=== PATIENT | female | born 1940 | race Caucasian/White ===

== ENCOUNTER → 2016-12-30 | Day surgery (SDC) | payer OTHER ==
[~2016-12-30] VITALS: Ht 157.5 cm; Wt 57.3 kg
[~2016-12-30] MED LIST: *morphine SULFATE 8 MG/ML PERIprocedure ONLY ONE; ACETAMINOPHEN 1000 MG/100 ML VIAL IV ONE; ACETAMINOPHEN/HYDROcodone 325 MG/5 MG TAB PO PRN; BUPIVACAINE/EPINEPHRINE 0.25% PF 30 ML VIAL ONE; CARB6.5S5 EACH EAR; DEXAMETHASONE SOD PHOS 4 MG/ML VIAL ONE; ENAL20TA PO; FAMOTIDINE 20 MG/2 ML VIAL ONE; HYDR-3288 PO; HYDR-3583 PO; INSULIN HUMAN REGULAR 1,000 UNITS/10 ML VIAL SQ PRN; IOHEXOL 300 MG/ML 50 ML BTL (for RAD DIAG) OTHER ONE; KETOROLAC TROMETHAMINE 60 MG/2 ML (IM) VIAL IM ONE; LACTATED RINGER'S 1000 ML IV SCH; METOPROLOL TARTRATE 25 MG TAB PO PRN; MIDAZOLAM HCL 2 MG/2 ML VIAL ONE; MORPHINE SULFATE 4 MG/ML INJ IV PRN; MULT1TAB84 PO; NEOSTIGMINE 3 MG/3 ML SYR IV ONE; ONDANSETRON HCL 4 MG/2 ML VIAL IV PRN; ONDANSETRON HCL 4 MG/2 ML VIAL IV PUSH ONE; PROPOFOL 200 MG/20 ML AMP IV ONE; SODIUM CHLORID 0.9% 500 ML IV SCH; VANCOMYCIN HCL 1000 MG ON-CALL/NS 250 ML IV SCH; ceFAZolin 1,000 MG/NS 100 ML IV SCH; ePHEDrine/NS 50 MG/5 ML SYR IV ONE; fentaNYL CITRATE 250 MCG/5 ML AMP ONE
[2016-12-30 07:48] VITALS: BP 130/80; PULSE 72; RESP 16; TEMP 97.6; O2SAT 97
[2016-12-30 08:58] LABS: BICARBONATE 25.5 MEQ/L (21.0-32.0); POTASSIUM 3.6 MEQ/L (3.5-5.1)
--- NOTE | 2016-12-30 12:10 | RADRPT ---
EXAM DATE/TIME: 12/30/2016 11:01 [place] COMPARISON: No previous studies available for comparison. INDICATIONS : Cholelathisis. FLUORO TIME: 1.7 minutes IMAGE COUNT: MEDICAL HISTORY : None. SURGICAL HISTORY : None. ENCOUNTER: Initial ACUITY: 1 day PAIN SCORE: Non-responsive. LOCATION: Abdominal. PROCEDURE: CHOLANGIOGRAM, OPERATIVE 1. Intraoperative cholangiogram. In the operating room, the cystic duct stump was injected and radiographs obtained. The examination demonstrates small filling defects in the distal common bile duct with post sphincter otomy changes. No obstruction. CONCLUSION: 1. Small filling defects in the distal common bile duct, slightly irregular an appearance most charac teristic of small choledocholithiasis. Gaetano Zavala MD on December 30, 2016 at 12:04 Board Certified Radiologist. This report was verified electronically.
[2016-12-30 13:00] VITALS: BP 115/69; PULSE 86; RESP 16; TEMP 98.2; O2SAT 95
--- NOTE | 2016-12-30 15:57 | EKG ---
Date Performed: 12/30/2016 Time Performed: 07:58:19 PTAGE: 76 years EKG: Sinus rhythm Compared to prior tracing no significant change NORMAL ECG PREVIOUS TRACING : 01/28/1999 07.50 DOCTOR: Дмитрий Sexton Interpretating Date/Time 12/30/2016 15:55:12
--- NOTE | 2017-01-12 07:34 | MP ---
cc: NAREN FLORES M.D. DATE OF SURGERY 12/30/2016 PROCEDURE Laparoscopic cholecystectomy with intraoperative cholangiogram with intraoperative use of fluoroscopy. PREOPERATIVE DIAGNOSIS Cholecystitis POSTOPERATIVE DIAGNOSIS Same ANESTHESIA General endotracheal SURGEON Naren Flores MD ESTIMATED BLOOD LOSS Less than 10 mL FLUIDS 600 mL of crystalloid COMPLICATIONS None DRAINS None SPECIMEN Gallbladder to pathology. PROCEDURE IN DETAIL The patient was taken to the operating room and placed on the operating table in the supine position. After an adequate level of general endotracheal anesthesia was achieved, the abdomen was prepped and draped in the usual fashion. Time-out was taken confirming correct patient, site and procedure to be performed. Skin and subcutaneous tissue was infiltrated with local anesthetic and an incision made through the umbilicus and carried through the fascia sharply. The peritoneal cavity was directly visualized and a 12 mm balloon trocar was inserted and the balloon inflated. The patient was placed in reverse Trendelenburg position and the upper abdomen visualized. Three 5 mm trocars were placed with the first to the right of the falciform ligament and the second and third in the right subcostal region. All entered the abdominal cavity under direct vision uneventfully. The fundus of the gallbladder was then grasped and retracted upward. The cystic duct infundibular junction and cystic artery were both circumferentially dissected. The cystic artery was doubly clipped proximally, singly clipped on the gallbladder side and divided. A small cystic ductotomy was made and an Porter cholangiocatheter brought in via separate stab incision. The gallbladder was clipped proximal to this and an Porter cholangiocatheter brought in and placed into the cystic duct and secured with a clip. Cholangiogram was obtained and multiple runs were performed. There did not appear to be any common duct stones in this individual. At this point, the cholangiocatheter was removed, the cystic duct was doubly clipped distally and divided. The gallbladder was dissected off of the liver bed with electrodissection. The gallbladder was placed into an EndoCatch device and removed via the umbilical port while observing via the upper 5 mm trocar site. The specimen was passed off the table. The upper abdomen was revisualized via the umbilical port. The liver bed cystic artery stump and cystic duct stump were all seen to be clean and dry. At this point. all irrigation was aspirated from the abdominal cavity. Insufflation was discontinued and the upper 5 mm trocars were removed. No bleeding was noted from the trocar sites. The laparoscope and umbilical port were then removed. The fascia was closed at the umbilicus with 0 Vicryl suture in a simple interrupted and [id number] fashion. The remaining local anesthetic was injected into all of the trocar sites. The skin was closed at all trocar sites with 4-0 Vicryl in an interrupted buried fashion. All trocar sites were dressed with Steri-Strips. The patient was taken back to the recovery room in stable condition. Sponge and needle counts were reported be correct. MD PATRICIA Pascal/JOAQUÍN /9:07 AM /7:23 AM MTDAntonio
== END | disposition home or self-care (01) ==
LOC: HSDC 06:02
PROVIDERS: ATTEND Surgery Trauma Surgery
DX: K80.10 Calculus of gallbladder with chronic cholecystitis without obstruction (principal); I10 Essential (primary) hypertension
CPT/HCPCS: 00790; 47562; 74300; 80048; 88304; 93005; J0131; J0690; J1100; J1885; J2250; J2270; J2405; J2710; J3010; J3370; J7050; J7120; Q9967